=== PATIENT | female | born 1970 | race Caucasian/White ===

== ENCOUNTER 2016-08-02 10:31 | Emergency (ER) | payer MEDICARE, MEDICAID ==
[2016-08-02] MEDS ORDERED: Sodium Chloride 0.9% 10 ML Syringe FLUSH PRN (11:34)
[2016-08-02] MEDS ORDERED: Ondansetron 4 MG/2 ML SDV IVPUSH ONE ×2 (11:35→13:38)
[2016-08-02] MEDS ORDERED: HYDROmorphone 2 MG/ML SDV IVPUSH ONE ×2 (11:36→13:38)
--- NOTE | 2016-08-02 11:38 | EDM.PDOC ---
ED HPI GI/ABDOMINAL - General Chief Complaint: Abdominal Pain Stated Complaint: abdominal pain Time Seen by Provider: 08/02/16 11:15 Source: Reports: Patient, Old records History Limitations: Reports: No limitations - History of Present Illness INITIAL COMMENTS - FREE TEXT/NARRATIVE: Hallie reports sxs of headache, nausea, vomiting, and diarrhea over the past 4 days. There is some malaise, without fever, sweats, back pain or voiding sxs. There is some vague midabdominal pain, without cramping. She has had approximately 8 loose stools this am. Of interest in a recent hospitalization for GE on March 03, 2016, infectious work up negative. She has a PMH of MS, and is currently on Aubagio x 7 mos for management. She has not tried any meds for sxs relief. - Related Data Allergies/ADRs: Allergies Allergy/AdvReac Type Severity Reaction Status Date / Time Penicillins Allergy Unknown Bronchospas Verified 08/02/16 10:32 ms Sulfa (Sulfonamide Allergy Unknown Bronchospas Verified 08/02/16 10:32 Antibiotics) ms Home Meds: Home Meds Estrogens, Conjugated [Premarin] 1.25 mg PO DAILY 04/30/13 [History] traZODone 100 mg PO BEDTIME 04/30/13 [History] DULoxetine [Cymbalta] 60 mg PO DAILY 03/03/16 [History] Hydrochlorothiazide/Valsartan [Diovan HCTZ 80-12.5 MG] 1 tab PO DAILY 03/03/16 [ History] Pregabalin [Lyrica] 100 mg PO BID@08,18 03/03/16 [History] Teriflunomide [Aubagio] 14 mg PO DAILY 03/03/16 [History] cycloSPORINE [Restasis] 1 drop EYEBOTH DAILY PRN 03/03/16 [History] Gabapentin [Neurontin] 900 mg PO TID 08/02/16 [History] Ondansetron [Zofran ODT] 4 mg PO Q6H PRN #12 tab.dis 08/02/16 [Rx] Past Medical History - Past Health History Medical/Surgical History: Denies Medical/Surgical History HEENT History: Reports: Impaired vision Cardiovascular History: Reports: High cholesterol Gastrointestinal History: Reports: GERD Genitourinary History: Reports: Urinary incontinence, UTI, recurrent 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 CATARACTS. MANY EYE SURGERIES IN PAST 11 PLUS. GI Surgical History: Reports: Colonoscopy, EGD Female Surgical History: Reports: Breast reduction, section, Hysterectomy Social & Family History - Tobacco Use Smoking Status *Q: Former Smoker Used Tobacco, but Quit: Yes Month Tobacco Last Used: 0 Second Hand Smoke Exposure: Yes - Caffeine Use Caffeine Use: Reports: Coffee, Soda Caffeine Use Comment: 2 TO 4 CUPS COFFEE AND 3 CAN DIET COKE - Alcohol Use Days Per Week of Alcohol Use: 0 - Recreational Drug Use Recreational Drug Use: Yes Drug Use in Last 12 Months: Yes Recreational Drug Type: Reports: Marijuana/Hashish Recreational Drug Use Frequency: Daily - Living Situation & Occupation Living situation: Reports: Occupation: disabled ED ROS GENERAL - Review of Systems Review Of Systems: See Below Constitutional: Reports: chills, malaise, weakness, decreased appetite, weight loss HEENT: Reports: Other (chronic vision impairment) Respiratory: Reports: No Symptoms Cardiovascular: Reports: No symptoms Endocrine: Reports: no symptoms GI/Abdominal: Reports: Abdominal pain, Diarrhea, Decreased appetite, Nausea, Vomiting Musculoskeletal: Reports: no symptoms Skin: Reports: no symptoms Neurological: Reports: Headache (frontal headache with current illness), Difficulty Walking (impairment on R side from MS) Psychiatric: Reports: Anxiety, Depression, Mood lability Hematologic/Lymphatic: Reports: no symptoms Immunologic: Reports: other (on immunosuppressive for MS) ED EXAM, GI/ABD - Physical Exam Exam: See Below Exam Limited By: No limitations General Appearance: alert, WD/WN, no apparent distress, anxious Eyes: bilateral: EOMI Ears: normal external exam, normal canal, hearing grossly normal, normal TMs Nose: normal inspection, normal mucosa Throat/Mouth: Normal inspection, Normal lips, Normal teeth, Normal gums, Normal oropharynx, Normal voice, No airway compromise Head: atraumatic, normocephalic Neck: normal inspection, supple, non-tender, full range of motion Respiratory/Chest: no respiratory distress, lungs clear, normal breath sounds, no accessory muscle use, chest non-tender Cardiovascular: normal peripheral pulses, regular rate, rhythm, no murmur GI/Abdominal: soft, no organomegaly, no distention, no mass, hypoactive bowel sounds, tenderness (mild mid abdomen) (Female) Exam: Deferred Rectal (Female) Exam: Deferred Back Exam: normal inspection Extremities: normal inspection, normal range of motion, non-tender, other ( weakness RLE) Neurological: alert, oriented, normal cognition Psychiatric: normal affect, anxious Skin Exam: Warm, Dry, Intact, Normal color, No rash Lymphatic: no adenopathy Course - Vital Signs Text/Narrative:: Following assessment in the [facility] ED, an IV was started in the LUE, and I administered 2L of NS over the next 2 hrs pending lab results. I also administered Zofran 4 mg IV and Dilaudid 2 mg IV for sxs relief. Nausea subsided , and patient was given chips and sips of clear liquids. Headache sxs also improved with analgesics. The CBC noted Hgb 13.6 gm, WBC 10,500, plts normal; CMP noted mild elevations of AST and ALT, UA normal, all other values normal for age. Last Recorded V/S: Last Vital Signs Temp 36.3 C 08/02/16 10:38 Pulse 96 08/02/16 10:38 Resp 20 08/02/16 10:38 BP 171/83 H 08/02/16 10:38 Pulse Ox 97 08/02/16 10:38 - Orders/Labs/Meds Orders: Active Orders 24 hr Category Date Time Status Urinary Catheter Insertion [Insert Urinary Catheter] [ Care 08/02/16 14:30 Ordered OM.PC] Q24H CULTURE BLOOD [BC] Urgent Lab 08/02/16 11:50 Received CULTURE BLOOD [BC] Urgent Lab 08/02/16 11:55 Received CULTURE URINE [RM] Stat Lab 08/02/16 14:38 Received CULTURE-STOOL [MREF] Stat Lab 08/02/16 11:34 Uncollected HELICOBACTER PYLORI AG, STOOL [REF] Stat Lab 08/02/16 Ordered Hemoccult [OCCULT BLOOD DIAGNOSTIC] [OP] Stat Lab 08/02/16 11:37 Uncollected LACTOFERRIN, FECAL BY CORNELL [REF] Stat Lab 08/02/16 Ordered LIPASE [REF] Routine Lab 08/02/16 11:50 Received Sodium Chloride 0.9% [Normal Saline] 2,000 ml Med 08/02/16 11:45 Active IV ASDIRECTED Sodium Chloride 0.9% [Saline Flush] Med 08/02/16 11:34 Active 10 ml FLUSH ASDIRECTED PRN Blood Culture x2 Reflex Set [OM.PC] Urgent Oth 08/02/16 11:34 Ordered Peripheral IV Insertion Adult [OM.PC] Routine Oth 08/02/16 11:34 Ordered Medication Orders Sodium Chloride (Normal Saline) 2,000 mls @ 999 mls/hr IV ASDIRECTED GUNNAR Last Admin: 08/02/16 12:40 Dose: 999 mls/hr Infusion: 08/02/16 12:40 Dose: 999 mls/hr Admin: 08/02/16 11:44 Dose: 999 mls/hr Sodium Chloride (Saline Flush) 10 ml FLUSH ASDIRECTED PRN PRN Reason: Keep Vein Open Labs: Laboratory Tests 08/02/16 08/02/16 08/02/16 Range/Units 11:50 11:50 14:38 WBC 10.5 (4.5-12.0) X10-3/uL RBC 4.45 (3.23-5.20) x10(6)uL Hgb 13.6 (11.5-15.5) g/dL Hct 40.0 (30.0-51.3) % MCV 89.9 (80-96) fL MCH 30.5 (27.7-33.6) pg MCHC 33.9 (32.2-35.4) g/dL RDW 13.3 (11.5-15.5) % Plt Count 287 (125-369) X10(3)uL MPV 8.4 (7.4-10.4) fL Add Manual Diff Yes Neutrophils % (Manual) 79 (46-82) % Lymphocytes % (Manual) 18 (13-37) % Monocytes % (Manual) 3 L (4-12) % Sodium 135 (135-145) mmol/L Potassium 3.5 (3.5-5.3) mmol/L Chloride 100 D (100-110) mmol/L Carbon Dioxide 23 (23-29) mmol/L BUN 9 (5-20) mg/dL Creatinine 0.6 (0.6-1.3) mg/dL Est Cr Clr Drug Dosing 91.68 mL/min Estimated GFR (MDRD) > 60 (>60) BUN/Creatinine Ratio 15.0 (9-20) Glucose 116 (80-116) mg/dL Calcium 9.4 (8.6-10.2) mg/dL Magnesium 1.8 (1.8-2.5) mg/dL Total Bilirubin 0.5 (0.1-1.3) mg/dL AST 32 H D (5-27) IU/L ALT 27 H D (14-26) IU/L Alkaline Phosphatase 84 (56-112) IU/L Total Protein 7.8 (6.0-8.0) g/dL Albumin 4.0 (3.5-5.2) g/dL Globulin 3.8 g/dL Albumin/Globulin Ratio 1.1 Amylase 41 (28-100) U/L Urine Color Yellow (YELLOW) Urine Appearance Slightly cloudy (CLEAR) Urine pH 7.0 H (5.0-6.5) Ur Specific [place] 1.010 (1.010-1.025) Urine Protein Negative (NEGATIVE) mg/dL Urine Glucose (UA) Normal (NEGATIVE) mg/dL Urine Ketones 15 H (NEGATIVE) mg/dL Urine Occult Blood Moderate H (NEGATIVE) Urine Nitrite Negative (NEGATIVE) Urine Bilirubin Negative (NEGATIVE) Urine Urobilinogen Normal (NEGATIVE) mg/dL Ur Leukocyte Esterase Negative (NEGATIVE) Urine RBC 5-10 (0) Urine WBC 5-10 (0) Ur Squamous Epith Cells Many H (NS,R,O) Amorphous Sediment Moderate Urine Bacteria Moderate H (NS) Meds: Medications Generic Name Dose Route Start Last Admin Trade Name Freq PRN Reason Stop Dose Admin Sodium Chloride 2,000 mls @ 999 mls/hr 08/02/16 11:45 08/02/16 12:40 Normal Saline IV 999 mls/hr ASDIRECTED GUNNAR Administration Sodium Chloride 10 ml 08/02/16 11:34 Saline Flush FLUSH ASDIRECTED PRN Keep Vein Open Discontinued Medications Generic Name Dose Route Start Last Admin Trade Name Freq PRN Reason Stop Dose Admin Hydromorphone HCl 2 mg 08/02/16 11:36 08/02/16 11:46 Dilaudid IVPUSH 08/02/16 11:37 2 mg ONETIME ONE Administration Hydromorphone HCl 2 mg 08/02/16 13:38 08/02/16 13:55 Dilaudid IVPUSH 08/02/16 13:39 2 mg ONETIME ONE Administration Ondansetron HCl 4 mg 08/02/16 11:35 08/02/16 11:46 Zofran IVPUSH 08/02/16 11:36 4 mg ONETIME ONE Administration Ondansetron HCl 4 mg 08/02/16 13:38 08/02/16 13:55 Zofran IVPUSH 08/02/16 13:39 4 mg ONETIME ONE Administration Departure - Departure Time of Disposition: 15:35 Disposition: Home, Self-Care 01 Condition: fair Clinical Impression: Tension headache, Gastroenteritis Forms: ED Department Discharge - Problem List & Annotations (1) Tension headache SNOMED Code(s): 389767257 Code(s): G44.209 - TENSION-TYPE HEADACHE, UNSPECIFIED, NOT INTRACTABLE Status: Acute Current Visit: Yes Annotation/Comment:: Tension headache improved, and may be managed with Tylenol or NSAIDs. (2) Gastroenteritis SNOMED Code(s): 22351534 Code(s): K52.9 - NONINFECTIVE GASTROENTERITIS AND COLITIS, UNSPECIFIED Status: Acute Current Visit: Yes Annotation/Comment:: Diarrhea can be managed with Imodium tabs prn. The nausea can be managed with a prescription of Zofran ODT 4 mg q 6 hr prn, and follow up with PCP. - Problem List Review Problem List Initiated/Reviewed/Updated: Yes - My Orders Last 24 Hours: My Active Orders 08/02/16 HELICOBACTER PYLORI AG, STOOL [REF] Stat LACTOFERRIN, FECAL BY CORNELL [REF] Stat 08/02/16 11:34 CULTURE-STOOL [MREF] Stat Sodium Chloride 0.9% [Saline Flush] 10 ml FLUSH ASDIRECTED PRN Blood Culture x2 Reflex Set [OM.PC] Urgent Peripheral IV Insertion Adult [OM.PC] Routine 08/02/16 11:37 Hemoccult [OCCULT BLOOD DIAGNOSTIC] [OP] Stat 08/02/16 11:45 Sodium Chloride 0.9% [Normal Saline] 2,000 ml IV ASDIRECTED 08/02/16 11:50 CULTURE BLOOD [BC] Urgent LIPASE [REF] Routine 08/02/16 11:55 CULTURE BLOOD [BC] Urgent 08/02/16 14:30 Urinary Catheter Insertion [Insert Urinary Catheter] [OM.PC] Q24H 08/02/16 14:38 CULTURE URINE [RM] Stat - Assessment/Plan Last 24 Hours: My Active Orders 08/02/16 HELICOBACTER PYLORI AG, STOOL [REF] Stat LACTOFERRIN, FECAL BY CORNELL [REF] Stat 08/02/16 11:34 CULTURE-STOOL [MREF] Stat Sodium Chloride 0.9% [Saline Flush] 10 ml FLUSH ASDIRECTED PRN Blood Culture x2 Reflex Set [OM.PC] Urgent Peripheral IV Insertion Adult [OM.PC] Routine 08/02/16 11:37 Hemoccult [OCCULT BLOOD DIAGNOSTIC] [OP] Stat 08/02/16 11:45 Sodium Chloride 0.9% [Normal Saline] 2,000 ml IV ASDIRECTED 08/02/16 11:50 CULTURE BLOOD [BC] Urgent LIPASE [REF] Routine 08/02/16 11:55 CULTURE BLOOD [BC] Urgent 08/02/16 14:30 Urinary Catheter Insertion [Insert Urinary Catheter] [OM.PC] Q24H 08/02/16 14:38 CULTURE URINE [RM] Stat Plan: Follow up with PCP if needed.
[2016-08-02] MEDS: Sodium Chloride 0.9% 2,000 ML IV SCH ×2 (11:44→12:40)
[2016-08-02 15:54] VITALS: BP 139/85
== END 2016-08-02 15:57 | disposition home or self-care (01) ==
LOC: FB.ED 10:31
DX: K52.9 Noninfective gastroenteritis and colitis, unspecified (principal); G44.209 Tension-type headache, unspecified, not intractable; E78.00 Pure hypercholesterolemia, unspecified; K21.9 Gastro-esophageal reflux disease without esophagitis; Z87.440 Personal history of urinary (tract) infections; F41.9 Anxiety disorder, unspecified; F32.9 Major depressive disorder, single episode, unspecified; Z79.899 Other long term (current) drug therapy; Z98.41 Cataract extraction status, right eye; Z98.42 Cataract extraction status, left eye; Z90.710 Acquired absence of both cervix and uterus; Z87.891 Personal history of nicotine dependence; Z88.0 Allergy status to penicillin; Z88.2 Allergy status to sulfonamides
CPT/HCPCS: 36415; 51701; 80053; 81001; 82150; 83690; 83735; 85025; 87040; 87086; 96361; 96374; 96375; 96376; 99284; J1170; J2405; J7040

== ENCOUNTER 2016-12-03 18:15 | Emergency (ER) | payer MEDICARE, MEDICAID ==
[2016-12-03 18:34] VITALS: BP 129/86
[2016-12-03] MEDS ORDERED: Acetaminophen 325 MG Tab PO ONE (18:49)
--- NOTE | 2016-12-03 18:56 | EDM.PDOC ---
ED HPI GENERAL MEDICAL PROBLEM - General Chief Complaint: General Stated Complaint: LEG WEAKNESS Time Seen by Provider: 12/03/16 18:30 Source of Information: Reports: Patient, Old Records History Limitations: Reports: No Limitations - History of Present Illness INITIAL COMMENTS - FREE TEXT/NARRATIVE: Hallie comes to [facility] ED by EMS reporting that the [facility] in [place], [place] requires medical clearance. Her PCP is unavailable at this time. Her spouse reportedly cannot take care of her physical needs, and he is unavailable at this time. Hallie has a PMH of MS, ambulates with a walker and did so this am, although now she is reported chronic pain and weakness in legs and feet do not permit ambulation. There is some frontal headache which is chronic. There is no fever, chills, sweats, cough, chest pain or SOB. Her med list is reviewed. Headache Pain Score (Numeric/FACES): 8 - Related Data Allergies Allergy/AdvReac Type Severity Reaction Status Date / Time Penicillins Allergy Unknown Bronchospas Verified 12/03/16 18:31 ms Sulfa (Sulfonamide Allergy Unknown Bronchospas Verified 12/03/16 18:31 Antibiotics) ms Home Meds: Home Meds Estrogens, Conjugated [Premarin] 1.25 mg PO DAILY 04/30/13 [History] traZODone 100 mg PO BEDTIME 04/30/13 [History] DULoxetine [Cymbalta] 60 mg PO DAILY 03/03/16 [History] Hydrochlorothiazide/Valsartan [Diovan HCTZ 80-12.5 MG] 1 tab PO DAILY 03/03/16 [ History] Teriflunomide [Aubagio] 14 mg PO DAILY 03/03/16 [History] Gabapentin [Neurontin] 300 mg PO TID 12/03/16 [History] Valsartan/Hydrochlorothiazide [Valsartan-Hctz 80-12.5 mg Tab] 1 each PO DAILY [History] Past Medical History - Past Health History Medical/Surgical History: Denies Medical/Surgical History HEENT History: Reports: Impaired Vision Cardiovascular History: Reports: High Cholesterol Gastrointestinal History: Reports: GERD Genitourinary History: Reports: Urinary Incontinence, UTI, Recurrent 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, Musculoskeletal History: Reports: Other (See Below) Other Musculoskeletal History: PT HAS MS AND DRAGS RIGHT LEG NOW Neurological History: Reports: MS Psychiatric History: Reports: Anxiety, Depression, Mood Swings - Infectious Disease History Infectious Disease History: Reports: Chicken Pox, Measles, Mumps - Past Surgical History HEENT Surgical History: Reports: Cataract Surgery GI Surgical History: Reports: Colonoscopy, EGD Female Surgical History: Reports: Breast Reduction, Section, Hysterectomy Social & Family History - Tobacco Use Smoking Status *Q: Former Smoker Used Tobacco, but Quit: Yes Month Tobacco Last Used: quit 10 years ago Second Hand Smoke Exposure: Yes - Caffeine Use Caffeine Use: Reports: Coffee Caffeine Use Comment: 2 TO 4 CUPS COFFEE AND 3 CAN DIET COKE - Alcohol Use Days Per Week of Alcohol Use: 0 - Recreational Drug Use Recreational Drug Use: No Drug Use in Last 12 Months: Yes Recreational Drug Type: Reports: Marijuana/Hashish Recreational Drug Use Frequency: Daily - Living Situation & Occupation Living situation: Reports: Occupation: Disabled ED ROS GENERAL - Review of Systems Review Of Systems: See Below Constitutional: Reports: Weakness HEENT: Reports: No Symptoms Respiratory: Reports: No Symptoms Cardiovascular: Reports: No Symptoms Endocrine: Reports: No Symptoms GI/Abdominal: Reports: No Symptoms : Reports: No Symptoms Musculoskeletal: Reports: Leg Pain, Foot Pain, Muscle Pain, Other (weakness in LEs) Skin: Reports: No Symptoms Neurological: Reports: Headache, Numbness, Pre-Existing Deficit, Difficulty Walking, Weakness, Gait Disturbance Psychiatric: Reports: No Symptoms Hematologic/Lymphatic: Reports: No Symptoms Immunologic: Reports: No Symptoms ED EXAM, GENERAL - Physical Exam Exam: See Below Exam Limited By: Physical Impairment General Appearance: Alert, WD/WN, No Apparent Distress, Anxious Eye Exam: Bilateral Eye: EOMI, Normal Inspection, PERRL Ears: Normal External Exam, Normal Canal Nose: Normal Inspection Throat/Mouth: Normal Inspection, Normal Lips, Normal Teeth, Normal Oropharynx, Normal Voice Head: Normocephalic Neck: Normal Inspection, Supple, Non-Tender, Full Range of Motion Respiratory/Chest: Lungs Clear, Normal Breath Sounds, No Accessory Muscle Use, Chest Non-Tender Cardiovascular: Regular Rate, Rhythm GI/Abdominal: Normal Bowel Sounds, Soft, Non-Tender, No Organomegaly, No Distention, No Mass Rectal (Female) Exam: Deferred Back Exam: Normal Inspection Extremities: Other (both legs note mild dependent edema, no tracey swelling or deformity; she can move her feet, and does move legs with distraction) Neurological: Alert, CN II-XII Intact, Abnormal Gait, Sensory/Motor Deficit Psychiatric: Normal Affect, Anxious Skin Exam: Warm, Dry, Intact Lymphatic: No Adenopathy Course - Vital Signs Text/Narrative:: Following assession at the [facility] ED, screening labs noted: CBC 13.7 gm, WBC 13, 600, plts normal; Na 135, K 2.7; UA + nitrites, UC set up; DS: cannabis positive She is not cleared for SNF. Last Recorded V/S: Last Vital Signs Temp 36.9 C 12/03/16 18:32 Pulse 104 H 12/03/16 18:32 Resp 18 12/03/16 18:32 BP 129/86 12/03/16 18:32 Pulse Ox 94 L 12/03/16 18:32 - Orders/Labs/Meds Orders: Active Orders 24 hr Category Date Time Status Potassium Chloride [Klor-Con M20] Med 12/03/16 20:45 Ordered 20 meq PO TID Medication Orders Potassium Chloride (Klor-Con M20) 20 meq PO TID GUNNAR Labs: Laboratory Tests 12/03/16 12/03/16 12/03/16 Range/Units 19:10 19:10 19:10 WBC 13.7 H (4.5-12.0) X10-3/uL RBC 4.32 (3.23-5.20) x10(6)uL Hgb 13.6 (11.5-15.5) g/dL Hct 39.0 (30.0-51.3) % MCV 90.2 (80-96) fL MCH 31.6 (27.7-33.6) pg MCHC 35.0 (32.2-35.4) g/dL RDW 12.3 (11.5-15.5) % Plt Count 319 (125-369) X10(3)uL MPV 8.3 (7.4-10.4) fL Neut % (Auto) 70.8 (46-82) % Lymph % (Auto) 22.4 (13-37) % [place] % (Auto) 4.4 (4-12) % Eos % (Auto) 1 (1.0-5.0) % Baso % (Auto) 2 (0-2) % Neut # (Auto) 9.7 H (1.6-8.3) # Lymph # (Auto) 3.1 (0.6-5.0) # [place] # (Auto) 0.6 (0.0-1.3) # Eos # (Auto) 0.1 (0.0-0.8) # Baso # (Auto) 0.2 (0.0-0.2) # Sodium 135 (135-145) mmol/L Potassium 2.7 L* (3.5-5.3) mmol/L Chloride 94 L D (100-110) mmol/L Carbon Dioxide 29 (23-29) mmol/L BUN 15 (5-20) mg/dL Creatinine 0.7 (0.6-1.3) mg/dL Est Cr Clr Drug Dosing 78.58 mL/min Estimated GFR (MDRD) > 60 (>60) BUN/Creatinine Ratio 21.4 H (9-20) Glucose 114 (80-116) mg/dL Calcium 9.1 (8.6-10.2) mg/dL Total Bilirubin 0.3 (0.1-1.3) mg/dL AST 21 D (5-27) IU/L ALT 15 D (14-26) IU/L Alkaline Phosphatase 81 (56-112) IU/L Total Protein 7.3 (6.0-8.0) g/dL Albumin 3.8 (3.5-5.2) g/dL Globulin 3.5 g/dL Albumin/Globulin Ratio 1.1 Urine Color (YELLOW) Urine Appearance (CLEAR) Urine pH (5.0-6.5) Ur Specific [place] (1.010-1.025) Urine Protein (NEGATIVE) mg/dL Urine Glucose (UA) (NEGATIVE) mg/dL Urine Ketones (NEGATIVE) mg/dL Urine Occult Blood (NEGATIVE) Urine Nitrite (NEGATIVE) Urine Bilirubin (NEGATIVE) Urine Urobilinogen (NEGATIVE) mg/dL Ur Leukocyte Esterase (NEGATIVE) Urine RBC (0) Urine WBC (0) Ur Squamous Epith Cells (NS,R,O) Urine Bacteria (NS) Urine Opiates Screen (NEGATIVE) Ur Oxycodone Screen (NEGATIVE) Ur Propoxyphene Screen (NEGATIVE) Ur Barbituates Screen (NEGATIVE) Ur Tricyclics Screen (NEGATIVE) Ur Phencyclidine Scrn (NEGATIVE) Ur Amphetamine Screen (NEGATIVE) Urine MDMA Screen (NEGATIVE) U Benzodiazepines Scrn (NEGATIVE) U Cocaine Metab Screen (NEGATIVE) U Marijuana (THC) Screen (NEGATIVE) Ethyl Alcohol < 0.01 (<0.01) % 12/03/16 12/03/16 Range/Units 19:54 19:54 WBC (4.5-12.0) X10-3/uL RBC (3.23-5.20) x10(6)uL Hgb (11.5-15.5) g/dL Hct (30.0-51.3) % MCV (80-96) fL MCH (27.7-33.6) pg MCHC (32.2-35.4) g/dL RDW (11.5-15.5) % Plt Count (125-369) X10(3)uL MPV (7.4-10.4) fL Neut % (Auto) (46-82) % Lymph % (Auto) (13-37) % [place] % (Auto) (4-12) % Eos % (Auto) (1.0-5.0) % Baso % (Auto) (0-2) % Neut # (Auto) (1.6-8.3) # Lymph # (Auto) (0.6-5.0) # [place] # (Auto) (0.0-1.3) # Eos # (Auto) (0.0-0.8) # Baso # (Auto) (0.0-0.2) # Sodium (135-145) mmol/L Potassium (3.5-5.3) mmol/L Chloride (100-110) mmol/L Carbon Dioxide (23-29) mmol/L BUN (5-20) mg/dL Creatinine (0.6-1.3) mg/dL Est Cr Clr Drug Dosing mL/min Estimated GFR (MDRD) (>60) BUN/Creatinine Ratio (9-20) Glucose (80-116) mg/dL Calcium (8.6-10.2) mg/dL Total Bilirubin (0.1-1.3) mg/dL AST (5-27) IU/L ALT (14-26) IU/L Alkaline Phosphatase (56-112) IU/L Total Protein (6.0-8.0) g/dL Albumin (3.5-5.2) g/dL Globulin g/dL Albumin/Globulin Ratio Urine Color Yellow (YELLOW) Urine Appearance Slightly cloudy (CLEAR) Urine pH 5.0 (5.0-6.5) Ur Specific [place] 1.030 H (1.010-1.025) Urine Protein Negative (NEGATIVE) mg/dL Urine Glucose (UA) Normal (NEGATIVE) mg/dL Urine Ketones Negative (NEGATIVE) mg/dL Urine Occult Blood Moderate H (NEGATIVE) Urine Nitrite Positive H (NEGATIVE) Urine Bilirubin Negative (NEGATIVE) Urine Urobilinogen Normal (NEGATIVE) mg/dL Ur Leukocyte Esterase Small H (NEGATIVE) Urine RBC 0-5 (0) Urine WBC 5-10 (0) Ur Squamous Epith Cells Rare (NS,R,O) Urine Bacteria Many H (NS) Urine Opiates Screen Negative (NEGATIVE) Ur Oxycodone Screen Negative (NEGATIVE) Ur Propoxyphene Screen Negative (NEGATIVE) Ur Barbituates Screen Negative (NEGATIVE) Ur Tricyclics Screen Negative (NEGATIVE) Ur Phencyclidine Scrn Negative (NEGATIVE) Ur Amphetamine Screen Negative (NEGATIVE) Urine MDMA Screen Negative (NEGATIVE) U Benzodiazepines Scrn Negative (NEGATIVE) U Cocaine Metab Screen Negative (NEGATIVE) U Marijuana (THC) Screen Positive H (NEGATIVE) Ethyl Alcohol (<0.01) % Meds: Medications Generic Name Dose Route Start Last Admin Trade Name Freq PRN Reason Stop Dose Admin Potassium Chloride 20 meq 12/03/16 20:45 Klor-Con M20 PO TID GUNNAR Discontinued Medications Generic Name Dose Route Start Last Admin Trade Name Freq PRN Reason Stop Dose Admin Acetaminophen 650 mg 12/03/16 18:49 12/03/16 19:10 Tylenol PO 12/03/16 18:50 650 mg NOW ONE Administration Departure - Departure Time of Disposition: 20:56 Disposition: Home, Self-Care 01 Condition: Fair Clinical Impression: Hypokalemia, Cannabis abuse, Multiple sclerosis - Discharge Information Forms: ED Department Discharge - Problem List & Annotations (1) Hypokalemia SNOMED Code(s): 45112165 Code(s): E87.6 - HYPOKALEMIA Status: Acute Current Visit: No Annotation /Comment:: Her K 2.7 meq/l. I dispensed KCl 20 meq tabs tid x 4 days, and then follow up with PCP for levels. In the meantime, she is not medically cleared. (2) Multiple sclerosis SNOMED Code(s): 36375416 Code(s): G35 - MULTIPLE SCLEROSIS Status: Chronic Current Visit: Yes Annotation/Comment:: Follow up with Neurology. (3) Cannabis abuse SNOMED Code(s): 81509640 Code(s): F12.10 - CANNABIS ABUSE, UNCOMPLICATED Status: Acute Current Visit: Yes Annotation/Comment:: Hallie takes recreational cannabis for physical sxs. She was advised to consult with Neurology to obtain medical cannabis if this is deemed indicated. - Problem List Review Problem List Initiated/Reviewed/Updated: Yes - My Orders Last 24 Hours: My Active Orders 12/03/16 20:45 Potassium Chloride [Klor-Con M20] 20 meq PO TID - Assessment/Plan Last 24 Hours: My Active Orders 12/03/16 20:45 Potassium Chloride [Klor-Con M20] 20 meq PO TID Plan: Follow up with PCP.
[2016-12-03] MEDS ORDERED: Potassium Chloride 20 MEQ Tab.ER PO SCH (20:45)
[2016-12-03] MEDS ORDERED: Potassium Chloride 10 MEQ Tab.ER PO ONE (20:54)
== END 2016-12-03 21:20 | disposition home or self-care (01) ==
LOC: FB.ED 18:15
DX: E87.6 Hypokalemia (principal); F12.10 Cannabis abuse, uncomplicated; G35 Multiple sclerosis; F41.9 Anxiety disorder, unspecified; E78.00 Pure hypercholesterolemia, unspecified; F32.9 Major depressive disorder, single episode, unspecified; K21.9 Gastro-esophageal reflux disease without esophagitis; Z88.0 Allergy status to penicillin; Z88.2 Allergy status to sulfonamides; Z79.899 Other long term (current) drug therapy; Z87.440 Personal history of urinary (tract) infections; Z90.710 Acquired absence of both cervix and uterus; Z87.891 Personal history of nicotine dependence
CPT/HCPCS: 36415; 80053; 80305; 81001; 85025; 99283; A9270; G0480

== ENCOUNTER 2017-03-20 12:46 | Emergency (ER) | payer MEDICARE, MEDICAID ==
[2017-03-20] MEDS ORDERED: Sodium Chloride 0.9% 1,000 ML IV ONE ×2 (13:21→14:22)
[2017-03-20] MEDS ORDERED: Ondansetron 4 MG/2 ML SDV IVPUSH ONE (13:31)
[2017-03-20] MEDS ORDERED: Ketorolac 30 MG/ML SDV IVPUSH ONE (13:37)
[2017-03-20] MEDS ORDERED: Levofloxacin/Dextrose 5%-Water 500 MG in Premix Bag 1 BAG IV ONE (15:06)
== END 2017-03-20 16:38 | disposition home or self-care (01) ==
LOC: FB.ED 12:46
DX: K52.9 Noninfective gastroenteritis and colitis, unspecified (principal); N39.0 Urinary tract infection, site not specified; Z88.0 Allergy status to penicillin; Z88.2 Allergy status to sulfonamides; Z79.899 Other long term (current) drug therapy
CPT/HCPCS: 36415; 80048; 81001; 85025; 87086; 87088; 87186; 96361; 96365; 96375; 99283; J1885; J1956; J2405; J7040

== ENCOUNTER 2017-03-22 11:04 | Inpatient (IN) | payer MEDICARE, MEDICAID ==
[2017-03-22] MEDS ORDERED: Iopamidol 755 Mg/ML 75 ML Bottle IV ONE (12:36)
[2017-03-22] MEDS ORDERED: Potassium Chloride 10% 20 MEQ/15 ML Soln 15 ML UD Cup PO ONE (12:39)
[2017-03-22] MEDS ORDERED: NS + KCl 20mEq/L 1,000 ML IV SCH (12:45)
[2017-03-22] MEDS: Sodium Chloride 0.9% 1,000 ML IV SCH (14:00)
[2017-03-22] MEDS ORDERED: Acetaminophen 325 MG Tab PO PRN (14:03)
[2017-03-22] MEDS ORDERED: Ondansetron 4 MG Tab.DIS PO PRN (14:03)
[2017-03-22] MEDS ORDERED: Ibuprofen 600 MG Tab PO PRN (14:03)
[2017-03-22] MEDS ORDERED: Ondansetron 4 MG/2 ML SDV IV PRN (14:03)
[2017-03-22] MEDS ORDERED: Zolpidem 5 MG Tab PO PRN (14:03)
[2017-03-22] MEDS ORDERED: Sodium Chloride 0.9% 1,000 ML IV SCH (14:15)
--- NOTE | 2017-03-22 14:57 | CR ---
INDICATION: Weak, sick, MS 5 years. CHEST: A single AP upright view of the chest was obtained 03/22/2017 and compared with 09/26/2009, revealing the heart to remain normal in size and shape. There may be a mild dextroconvex scoliosis of the thoracic spine. A definite active infiltrate or effusion was not identified. IMPRESSION: Stable chest, no acute process. MTDD
--- NOTE | 2017-03-22 15:03 | CT ---
INDICATION: Elevated D-dimer, question PE. The patient has MS. COMPUTERIZED TOMOGRAPHY ANGIOGRAPHY OF THE CHEST FOR PULMONARY ANGIOGRAPHY: Spiral 1.25-mm images of the chest were obtained axially with 75 mL Isovue-370 at 3 mL per second, with sagittal and coronal reconstructions, 03/22/2017. No comparisons were available. Total Exam DLP = 705.02 mGy-cm. Opacification of the pulmonary arteries was not ideal, but was felt to be adequate. No evidence of pulmonary emboli was identified. There is some linear density in the lingula, most likely representing minimal pulmonary fibrosis. An active infiltrate or effusion or nodular mass was not identified. The heart did not appear to be enlarged. No mediastinal masses were identified. IMPRESSION: Normal CT chest, except for some very minimal fibrosis. No evidence of PE. Report was given by phone to Dr. Mcfadden at 1330 hours, 03/22/2017. [facility]
--- NOTE | 2017-03-22 15:21 | CT ---
INDICATION: Right abdominal pain, vomiting for 5 days. The patient has MS. CT ABDOMEN AND PELVIS WITH CONTRAST: Spiral 1.25-mm axial sections were obtained through the abdomen and pelvis with sagittal and coronal reconstructions, with contrast as noted in the above chest CT. Total Exam DLP = 1258.21 mGy-cm. The liver had a normal appearance. There is absence of the gallbladder, compatible with history of its removal - clips are noted at the cystic duct. The common bile duct was normal in caliber. The pancreas appeared normal. The spleen and adrenal glands appeared normal. The kidneys showed no evidence of solid mass lesions with several tiny low- density lesions, likely cystic in nature bilaterally, more prominent on the right than left, being slightly more prominent in size. No evidence of pyelonephritis could be identified. There is a slight tilt of the spine to the right. The urinary bladder had a normal appearance. Evidence of hysterectomy is noted. The appendix is not visualized, raising question of possibly appendectomy - correlate clinically. No evidence of bowel obstruction was identified. No evidence of free air was seen. No organomegaly, additional mass lesions, or free fluid collections were identified in the abdomen or pelvis. Minimal aortic calcifications are noted. Calcifications are also noted at the origin of the left renal artery, very minimally at the origin of the right renal artery, and at the splenic artery minimally also. Retroperitoneal lymphadenopathy is minimal and nonspecific. No retroperitoneal masses were suggested. Mild prominence of the wall thickness of the gastric antrum is of questionable significance, but makes it difficult to exclude a mild degree of antritis - early peptic ulcer disease - correlate clinically. There is suggestion of some thickening of the wall of the ascending colon extending into the proximal transverse colon area. The possibility of colitis would be a consideration - findings should be correlated clinically. If symptoms are referable to the colon, additional examination may be warranted such as colonoscopy or barium enema. IMPRESSION: 1. Minimal multicystic disease in the kidneys. 2. Minimal ASD. 3. Post cholecystectomy. 4. Post hysterectomy. 5. Probable appendectomy. 6. No definite acute intraabdominal abnormality. 7. Question the possibility of thickening of the lining of the gastric antrum. Early PUD could be present - correlate clinically. 8. Cannot exclude colitis in the ascending and proximal transverse area - correlate clinically. CT PELVIS: Examination of the pelvis was obtained by CT as noted above, and revealed absence of the uterus and appendix, suggesting postsurgical change. Correlate clinically. The urinary bladder was unremarkable. No hernia was seen. No free fluid collections, mass lesions, or organomegaly were seen in the pelvis. No evidence of bowel obstruction or free air was seen. Report was called to Dr. Mcfadden at 1348 hours, 03/22/2017. [facility]
[2017-03-22] MEDS ORDERED: Enoxaparin 40 MG/0.4 ML Syringe SUBCUT SCH (16:00)
[2017-03-22] MEDS ORDERED: Sodium Chloride 0.9% 10 ML Syringe FLUSH PRN (18:30)
[2017-03-22] MEDS ORDERED: Potassium Chloride 10% 20 MEQ/15 ML Soln 15 ML UD Cup ONE (18:44)
[2017-03-22] MEDS: HYDROmorphone 2 MG/ML SDV IVPUSH PRN (19:43)
[2017-03-22] MEDS ORDERED: Gabapentin 300 MG Cap PO SCH (21:00)
[2017-03-22] MEDS ORDERED: traZODone 100 MG Tab PO SCH (21:00)
[2017-03-22] MEDS ORDERED: Levofloxacin/Dextrose 5%-Water 500 MG in Premix Bag 1 BAG IV ONE (21:32)
[2017-03-23] MEDS: Sodium Chloride 0.9% 1,000 ML IV SCH (00:45)
[2017-03-23] MEDS ORDERED: diphenhydrAMINE 50 MG Cap PO ONE (00:51)
--- NOTE | 2017-03-23 07:50 | HP ---
ADMISSION DATE: 03/22/2017 REASON FOR VISIT: Complicated nausea, vomiting, and diarrhea. HISTORY OF PRESENT ILLNESS: Hallie Mendoza is a 47-year-old female, admitted with severe complicated diarrhea. She was seen at [facility] on this past Sunday with a complicated UTI. She came by ambulance. Discharged home on antibiotic therapy. Symptoms persisted with complicated nausea, severe diarrhea, progressive decline resulting in reevaluation and hospitalization. MEDICATIONS: 1. Recent change in medication from gabapentin to Lyrica that started, 150 mg b.i.d. 2. Cymbalta 60 mg plus 30 mg, 90 mg, tapered in divided doses. 3. Premarin 1.25 mg one daily. 4. Lopressor 25 mg one p.o. daily, heart rate control. 5. Trazodone 100 mg at bedtime, sleep enhancement. 6. Diovan/hydrochlorothiazide 80/25 one p.o. daily, blood pressure. 7. Melatonin. 8. Restasis. 9. Tylenol. ALLERGIES: Allergic to penicillin, ciprofloxacin, Percocet, and sulfa. PAST MEDICAL HISTORY: Significant for operative procedures to include multiple eye surgeries. Ongoing medical problems include progressive multiple sclerosis, hypertension, progressive MS related blindness, vertigo, and anxiety. Cholecystectomy, hysterectomy, and appendectomy present. SOCIAL HISTORY: Presently , though marriage is under some duress, former smoker, 2017. No alcohol consumption. No illicit drug use. FAMILY HISTORY: Negative for early heart disease, diabetes mellitus, or inheritable cancers. REVIEW OF SYSTEMS: GENERAL: Feeling very poorly. Weak, tired, fatigable. HEENT: Vision markedly impaired. Hearing markedly impaired. Oropharynx, some difficulty swallowing. CHEST: No cough, wheeze, or congestion. GI: Please see HPI. : Please see HPI. SKIN: No new lesions or eruptions. ENDOCRINE: No excessive thirst or urination. ALLERGIC: No chronic cough or disease. PHYSICAL EXAMINATION: VITAL SIGNS: Stable and documented. CONSTITUTIONAL: Appears quite ill. HEENT: Funduscopic benign. Conjunctivae clear. Bright tympanic membranes. Clear nasal discharge. Mouth and oropharynx, clear. CHEST: Clear in all lung toro. HEART: Regular without ectopy or murmur. ABDOMEN: Benign. Multiple surgical scars, well healed. Hyperactive bowel is distinctly tender, periumbilical. EXTREMITIES: Well perfused. SKIN: Without rash. LABORATORY STUDIES: White count 16,700, hemoglobin 12.9. Potassium 2.7. Inflammatory bowel changes throughout the colon. ASSESSMENT: 1. Complicated gastroenteritis. 2. Complicated urinary tract infection. PLAN: Medications, hospital treatment, adequate fluids, hydration, comfort measures, and well-being. Evaluation of urinary source, culture to follow, control of pain in intervention. /[id number] HEIDI/SHONA
[2017-03-23 08:20] VITALS: BP 154/97
--- NOTE | 2017-03-23 08:46 | PCM.PN ---
- General Info Date of Service: 03/23/17 Subjective Update: Patient complains of hip pain and requests Dilaudid. She states that the nausea has improved diarrhea has it no fever. She would like to go home. Functional Status: Reports: Tolerating Diet (liquid) - Review of Systems General: Reports: No Symptoms HEENT: Reports: No Symptoms Pulmonary: Reports: No Symptoms Cardiovascular: Reports: No Symptoms Gastrointestinal: Reports: No Symptoms Genitourinary: Reports: No Symptoms Musculoskeletal: Reports: No Symptoms, Joint Pain (Hip) - Patient Data Vitals - Most Recent: Last Vital Signs Temp 98.8 F 03/23/17 08:00 Pulse 85 03/23/17 08:00 Resp 18 03/23/17 08:00 BP 154/97 H 03/23/17 08:00 Pulse Ox 98 03/23/17 08:00 Weight - Most Recent: 74.435 kg I&O - Last 24 Hours: Intake & Output 03/22/17 03/23/17 03/23/17 22:59 06:59 14:59 Intake Total 1513 1040 233 Output Total 450 Balance 1513 590 233 Lab Results Last 24 Hours: Laboratory Results - last 24 hr 03/22/17 03/23/17 03/23/17 Range/Units 18:05 06:30 06:30 WBC 15.3 H (4.5-12.0) X10-3/uL RBC 3.68 (3.23-5.20) x10(6)uL Hgb 12.0 (11.5-15.5) g/dL Hct 33.5 (30.0-51.3) % MCV 91.1 (80-96) fL MCH 32.6 (27.7-33.6) pg MCHC 35.8 H (32.2-35.4) g/dL RDW 13.1 (11.5-15.5) % Plt Count 302 (125-369) X10(3)uL MPV 7.9 (7.4-10.4) fL Neut % (Auto) 79.1 (46-82) % Lymph % (Auto) 16.0 (13-37) % [place] % (Auto) 4.3 (4-12) % Eos % (Auto) 0 L (1.0-5.0) % Baso % (Auto) 0 (0-2) % Neut # (Auto) 12.0 H (1.6-8.3) # Lymph # (Auto) 2.5 (0.6-5.0) # [place] # (Auto) 0.7 (0.0-1.3) # Eos # (Auto) 0.1 (0.0-0.8) # Baso # (Auto) 0.0 (0.0-0.2) # ESR 37 H (0-20) mm/hr Sodium 141 (135-145) mmol/L Potassium 3.0 L (3.5-5.3) mmol/L Chloride 106 (100-110) mmol/L Carbon Dioxide 26 (21-32) mmol/L BUN 5 L (7-18) mg/dL Creatinine 0.6 (0.55-1.02) mg/dL Est Cr Clr Drug Dosing 94.85 mL/min Estimated GFR (MDRD) > 60 (>60) BUN/Creatinine Ratio 8.3 L (9-20) Glucose 116 (80-116) mg/dL Calcium 7.7 L (8.6-10.2) mg/dL Total Bilirubin 0.4 (0.1-1.3) mg/dL AST 19 (5-25) IU/L ALT 25 (12-36) U/L Alkaline Phosphatase 75 (56-112) IU/L Total Protein 7.0 (6.0-8.0) g/dL Albumin 3.3 L (3.5-5.2) g/dL Globulin 3.7 g/dL Albumin/Globulin Ratio 0.9 Urine Opiates Screen Negative (NEGATIVE) Ur Oxycodone Screen Negative (NEGATIVE) Ur Propoxyphene Screen Negative (NEGATIVE) Ur Barbituates Screen Negative (NEGATIVE) Ur Tricyclics Screen Negative (NEGATIVE) Ur Phencyclidine Scrn Negative (NEGATIVE) Ur Amphetamine Screen Negative (NEGATIVE) Urine MDMA Screen Negative (NEGATIVE) U Benzodiazepines Scrn Negative (NEGATIVE) U Cocaine Metab Screen Negative (NEGATIVE) U Marijuana (THC) Screen Positive H (NEGATIVE) Med Orders - Current: Current Medications Acetaminophen (Tylenol) 650 mg PO Q4H PRN PRN Reason: Pain (Mild 1-3)/fever Last Admin: 03/23/17 08:31 Dose: 650 mg Enoxaparin Sodium (Lovenox) 40 mg SUBCUT Q24H [facility] Last Admin: 03/22/17 16:41 Dose: 40 mg HCTZ/Valsartan (Diovan Hct 80-12.5 Mg) 1 tab PO DAILY [facility] Last Admin: 03/23/17 08:31 Dose: 1 tab Hydromorphone HCl (Dilaudid) 2 mg IVPUSH Q2H PRN PRN Reason: ABD PAIN Last Admin: 03/22/17 19:43 Dose: 2 mg Potassium Chloride/Sodium Chloride (Normal Saline With 20 Meq Kcl) 1,000 mls @ 400 mls/hr IV ASDIRECTED [facility] Last Admin: 03/22/17 15:33 Dose: 400 mls/hr Sodium Chloride (Normal Saline) 1,000 mls @ 125 mls/hr IV ASDIRECTED [facility] Last Admin: 03/23/17 00:45 Dose: 125 mls/hr Ondansetron HCl (Zofran Odt) 4 mg PO Q6H PRN PRN Reason: nausea, able to take PO Last Admin: 03/22/17 15:32 Dose: 4 mg Ondansetron HCl (Zofran) 4 mg IV Q4H PRN PRN Reason: Nausea/Vomiting Last Admin: 03/22/17 20:44 Dose: 4 mg Sodium Chloride (Saline Flush) 10 ml FLUSH ASDIRECTED PRN PRN Reason: IV Use Last Admin: 03/22/17 18:38 Dose: 10 ml Discontinued Medications Diphenhydramine HCl (Benadryl) 50 mg PO ONETIME ONE Stop: 03/23/17 00:52 Last Admin: 03/23/17 01:18 Dose: 50 mg Duloxetine HCl (Cymbalta) 60 mg PO DAILY [facility] Estrogens Conjugated (Premarin) 1.25 mg PO DAILY [facility] Gabapentin (Neurontin) 300 mg PO TID [facility] Sodium Chloride (Normal Saline) 1,000 mls @ 125 mls/hr IV ASDIRECTED [facility] Levofloxacin/Dextrose 500 mg/ (Premix) 100 mls @ 100 mls/hr IV ONETIME ONE Stop: 03/22/17 22:31 Last Admin: 03/22/17 22:03 Dose: 100 mls/hr Ibuprofen (Motrin) 600 mg PO Q6H PRN PRN Reason: Pain (mild 1-3) Iopamidol (Isovue-370 (76%)) 75 ml IV ONETIME ONE Stop: 03/22/17 12:37 Last Admin: 03/22/17 12:47 Dose: 75 ml Non-Formulary Medication (Teriflunomide [Aubagio]) 14 mg PO DAILY [facility] Potassium Chloride (Potassium Chloride Solution) 40 meq PO ONETIME ONE Stop: 03/22/17 12:40 Last Admin: 03/22/17 18:45 Dose: 40 meq Potassium Chloride (Potassium Chloride Solution) Confirm Administered Dose 40 meq .ROUTE .STK-MED ONE Stop: 03/22/17 18:45 Last Admin: 03/22/17 18:47 Dose: Not Given Trazodone HCl (Trazodone) 100 mg PO BEDTIME [facility] Zolpidem Tartrate (Ambien) 5 mg PO BEDTIME PRN PRN Reason: Sleep - Exam General: Alert, Oriented HEENT: Pupils Equal, Pupils Reactive, EOMI, Mucous Membr. Moist/[place] Neck: Supple Lungs: Clear to Auscultation, Normal Respiratory Effort Cardiovascular: Regular Rate, Regular Rhythm GI/Abdominal Exam: Normal Bowel Sounds, Soft, Non-Tender, No Organomegaly, No Distention, No Abnormal Bruit, No Mass, Pelvis Stable - Problem List & Annotations (1) Gastroenteritis SNOMED Code(s): 08957192 Code(s): K52.9 - NONINFECTIVE GASTROENTERITIS AND COLITIS, UNSPECIFIED Status: Acute Current Visit: No Annotation/Comment:: Diarrhea can be managed with Imodium tabs prn. The nausea can be managed with a prescription of Zofran ODT 4 mg q 6 hr prn, and follow up with PCP. (2) Hypokalemia SNOMED Code(s): 93187469 Code(s): E87.6 - HYPOKALEMIA Status: Acute Current Visit: No Annotation /Comment:: Her K 2.7 meq/l. I dispensed KCl 20 meq tabs tid x 4 days, and then follow up with PCP for levels. In the meantime, she is not medically cleared. (3) Chronic pain SNOMED Code(s): 78112303 Code(s): G89.29 - OTHER CHRONIC PAIN Status: Chronic Current Visit: No Qualifiers: Chronic pain type: chronic pain syndrome (4) Multiple sclerosis SNOMED Code(s): 67430451 Code(s): G35 - MULTIPLE SCLEROSIS Status: Chronic Current Visit: No Annotation/Comment:: Follow up with Neurology. (5) UTI (urinary tract infection) SNOMED Code(s): 30303682 Code(s): N39.0 - URINARY TRACT INFECTION, SITE NOT SPECIFIED Status: Acute Current Visit: Yes Qualifiers: Urinary tract infection type: acute cystitis - Problem List Review Problem List Initiated/Reviewed/Updated: Yes - Plan Plan:: I will discharge the patient home today on oral antibiotics. Levaquin 500 milligrams once a day. She'll get 1 more dose of Dilaudid IV before going home.
[2017-03-23] MEDS ORDERED: TERIFLUNOMIDE 14 MG PO SCH (09:00)
[2017-03-23] MEDS ORDERED: HYDROCHLOROTHIAZIDE PO SCH (09:00)
[2017-03-23] MEDS ORDERED: DULoxetine 60 MG Cap PO SCH (09:00)
[2017-03-23] MEDS ORDERED: VALSARTAN PO SCH (09:00)
--- NOTE | 2017-03-23 09:04 | ER ---
DATE SEEN: 03/22/2017 TIME: The patient was seen at 1130 hours. HISTORY OF PRESENT ILLNESS: This 47-year-old woman has had MS for the last 5 years. She was seen on 03/17/2017 with vomiting and a bad kidney infection, was started on antibiotic, Levaquin, on 03/20/2017 and presents today because she feels worse. She came by ambulance. 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 She had been vomiting for several days and now is retching only today. She vomited 8 to 10 times per day since 03/17/2017. She feels more sick today and weaker today, and has "bad kidneys" with a chronic kidney infection 2 days ago. REVIEW OF SYSTEMS: GENERAL: The patient is blind and can hear my voice, but cannot see me. She has mild horizontal nystagmus. CARDIORESPIRATORY: No shortness of breath with exertion. She cannot get up and walk, so just her exerting to a sitting position from lying down caused dyspnea. EXTREMITIES: She has paresis of lower extremities, paralysis of lower extremities, and she cannot stand on. She has marked difficulty in moving her right leg, but has more flexibility and strength to the left leg. She has more or less stationary and unbendable right leg because of MS and contractures that occurred with it. She has chronic low leg discomfort. ABDOMEN: She has abdominal discomfort presently. It is a 7 to 8/10 in intensity. This has been present intermittently since the . She notes she has incontinence of urine intermittently because of her multiple sclerosis. : She is 3, para 3- 0-0-3. She has 3 children with another and currently has 3 other children of another . NECK: No history of thyroid disease. She has been tested multiple times and is not abnormal. Review of systems; negative, except for noted above. She is blind. Her ambulation is limited to just getting up and transfers. ALLERGIES: Penicillin and sulfa. 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 CURRENT MEDICATIONS: 1. Acetaminophen. 2. Cyclosporine. 3. Restasis, one drop to both eyes at bedtime. 4. Trazodone 100 mg daily. 5. Tylenol Extra Strength. 6. Tramadol 50 b.i.d. 7. Pregabalin 100 mg b.i.d. 8. Estrogen conjugated. 9. Premarin 1.25 mg daily. 10.Metoprolol tartrate 25 mg daily. 11.Duloxetine 60 mg daily. 12.Valsartan/hydrochlorothiazide 80/12.5 each daily. PHYSICAL EXAMINATION: VITAL SIGNS: Blood pressure 173/93, heart rate 70 and regular, respirations 16, oxygen saturation 99%, and 36.8 degrees centigrade. 65.77 kg. BMI 29.1 kg/m2. CONSTITUTIONAL: An obese woman. HEENT: Has very glaring nystagmus to the left and right, lateral nystagmus with dysconjugate gaze. Hearing is slightly decreased. Pharynx without abnormality. Gag is in place. Tongue is midline. Uvula midline. NECK: No bruits in the neck. There is minimal cervical adenopathy. HEART: S1, S2. No murmur. ABDOMEN: Marked increased abdominal girth. Subumbilical scar noted. No CVA percussion tenderness. PELVIC: Not performed. No rebound. MUSCULOSKELETAL: Lower extremities, the right is stiff and almost immobile. Left can be moved, flexion is with some spontaneous flexion. Has very markedly compromised right hip. No motion in the right hip. Sensation is decreased, but present in the lower extremities. Deep tendon reflexes and knee jerks present. Ankle jerks hypoactive. Deep tendon reflexes of upper extremities 1+ and normoactive. 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 Upper extremity muscle strength is very good and absent in lower extremities. She cannot stand. LABORATORY FINDINGS: White count elevated at 16,700 with left shift, 85 PMNs, lymphocytes 12, monos 3. She has a remarkably low potassium of 2.7, sodium 139, chloride 103, bicarb 24, BUN 10, and creatinine 0.7. GFR is 81. Remainder of automated chemistry is normal. Troponin is less than 0.017. Drug urine screen is positive for marijuana. IMAGING: CAT scan was performed, which demonstrated gastric antrum thickening, colon thickening, proximal transverse colon. No evidence for pyelonephritis. A cyst noted in the kidneys. Thickened ascending colon. ASSESSMENT: 1. No evidence for bowel obstruction. 2. Colitis. 3. Morbid obesity. 4. Multiple sclerosis. 5. Minimal ability to take care of herself. She is very dependent. 6. No evidence for hypothyroidism. 7. Neutrophilic leukocytosis 16,700 with PMNs 70, 85, 88. Blood cultures obtained, but pending. 8. Further deterioration in status in the last several days, as seen 2 days ago. 9. Marked instability and inability to move her right leg because of multiple sclerosis and contracture. 10.Cannot stand and walk. 11.Hypokalemia. 12.No evidence for myocardial infarction. 13.Marijuana use. PLAN: 1. The patient was admitted, was given potassium supplements, IV potassium and oral potassium supplements. The patient's IV to maintain her magnesium, slightly low at 1.7. She needs magnesium. To maximize potassium absorption. The patient's EKG demonstrates sinus rhythm without ST elevation. IV hydration will be important as she is under hydrated. 2. Multiple sclerosis with significant hemiparesis of lower extremities. 3. Abdominal pain, etiology indeterminate, but probably secondary to the colitis in the colon. Vomiting secondary to colitis. Thickened ascending and descending colons, and thickened transverse colon. Gastric antrum is somewhat thickened also, status post gastric bypass. The patient's status was discussed with Dr. Alejandro at 1355 hours. The patient admitted for further observation, IV therapy, and potassium replacement. The patient also had gram-negative rods, urine cultures performed on the . Urine cultures final reading has not been completed. /[id number] PATIENCE/SHONA
--- NOTE | 2017-03-23 09:47 | DISCH ---
DISCHARGE DATE: 03/23/2017 REASON FOR ADMISSION: 1. Urinary tract infection. 2. Gastroenteritis. 3. Hypokalemia. 4. Generalized weakness. 5. Multiple sclerosis. 6. Chronic pain. DISCHARGE DIAGNOSES: 1. Urinary tract infection. 2. Gastroenteritis. 3. Hypokalemia. 4. Generalized weakness. 5. Multiple sclerosis. 6. Chronic pain. BRIEF HISTORY: This is a 47-year-old female, well known to have anxiety, chronic pain, MS, was admitted because of diarrhea and vomiting, unable to keep anything down. She was dehydrated and hypokalemic. She was also found to have a urinary tract infection, but she had been seen a couple days ago at the ER. She was admitted, given Levaquin, IV fluids, Dilaudid for pain control, and symptoms improved this morning to the point that she would like to go back home. I discharged her home on her regular medications, and Levaquin 500 mg a day for 5 days to complete 7 days for the urinary tract infection. FOLLOWUP: In the office with PCP in 1 week. I spent more than 35 minutes in discharge of the patient. /[id number] ABDOULAYE/SHONA
[2017-03-23] MEDS: HYDROmorphone 2 MG/ML SDV IVPUSH PRN (10:21)
== END 2017-03-23 10:37 | disposition home or self-care (01) | DRG 392 ==
LOC: FB.ED 11:04 → FB.MS 14:03 → UNDOADMIN 14:46 → UNDODISIN 03-23 10:37
PROVIDERS: ADMIT Family Medicine; ATTEND Family Medicine
DX: K52.9 Noninfective gastroenteritis and colitis, unspecified (principal); N39.0 Urinary tract infection, site not specified; I10 Essential (primary) hypertension; G35 Multiple sclerosis; H54.7 Unspecified visual loss; R79.1 Abnormal coagulation profile; E87.6 Hypokalemia; H35.52 Pigmentary retinal dystrophy; F12.90 Cannabis use, unspecified, uncomplicated; Z87.891 Personal history of nicotine dependence; G89.29 Other chronic pain; E86.0 Dehydration; R10.30 Lower abdominal pain, unspecified; R11.2 Nausea with vomiting, unspecified; R19.7 Diarrhea, unspecified; F32.9 Major depressive disorder, single episode, unspecified; Z88.1 Allergy status to other antibiotic agents; Z88.0 Allergy status to penicillin; Z88.2 Allergy status to sulfonamides; Z88.8 Allergy status to other drugs, medicaments and biological substances
CPT/HCPCS: 36415; 71010; 71275; 74177; 80053; 83036; 83605; 83735; 84443; 84484; 85025; 85379; 87040 ×2; 93005; 96360; 99284; Q9967; 80305; 85651; 93010; 99285; A9270-GY; J1170; J1650; J1956; J2405; J3480; J7040; J7050

== ENCOUNTER 2019-05-18 16:11 | Emergency (ER) | payer MEDICARE, MEDICAID ==
--- NOTE | 2019-05-18 16:48 | EDM.PDOC ---
ED HPI GENERAL MEDICAL PROBLEM - General Chief Complaint: Head Injury Stated Complaint: HEAD INJURY,HEADACHES Time Seen by Provider: 05/18/19 16:47 Source of Information: Reports: Patient History Limitations: Reports: No Limitations - History of Present Illness INITIAL COMMENTS - FREE TEXT/NARRATIVE: 49-year-old female who reports on of this last week 05/15/2019, she was walking and slipped and fell getting out of the shower because she has MS and she has unsure footing and she hit her head against the floor. She did not have any loss of consciousness. She has had some headache and an area of swelling along the right side of her head since then. Headache has been persisting and is a sharp pain with palpation and throbbing otherwise. His pain as an 8/10. There has been no nausea or vomiting. She has no neck pain or back pain. She is a resident of [facility] and was on the day past when this happened. She was sent over here by the intermediate staff for evaluation because of her ongoing/persisting headache. There are no other associated signs or symptoms. There are no other modifying factors. 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: Reports: Other (see below) (Nothing) left side back head Pain Score (Numeric/FACES): 3 - Related Data Allergies Allergy/AdvReac Type Severity Reaction Status Date / Time Penicillins Allergy Unknown Bronchospas Verified 05/18/19 19:41 ms Sulfa (Sulfonamide Allergy Unknown Bronchospas Verified 05/18/19 19:41 Antibiotics) ms ciprofloxacin [From Cipro] Allergy Cannot Verified 05/18/19 19:41 Remember oxycodone Allergy Cannot Verified 05/18/19 19:41 Remember Home Meds: Home Meds Estrogens, Conjugated [Premarin] 1.25 mg PO DAILY 04/30/13 [History] DULoxetine [Cymbalta] 60 mg PO DAILY 03/22/17 [History] Metoprolol Tartrate 25 mg PO DAILY 03/22/17 [History] cycloSPORINE [Restasis] 1 drop EYEBOTH BEDTIME 03/22/17 [History] Acetaminophen 650 mg PO Q4H PRN 02/03/18 [History] Pregabalin [Lyrica] 100 mg PO BID 02/03/18 [History] atorvaSTATin [Lipitor] 40 mg PO BEDTIME 05/18/19 [History] lisinopriL [Lisinopril] 30 mg PO DAILY 05/18/19 [History] Past Medical History HEENT History: Reports: Impaired Vision Cardiovascular History: Reports: High Cholesterol, Hypertension Gastrointestinal History: Reports: GERD Genitourinary History: Reports: Urinary Incontinence, UTI, 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 Neurological History: Reports: MS Psychiatric History: Reports: Anxiety, Depression, Mood Swings - Infectious Disease History Infectious Disease History: Reports: Chicken Pox, Mononucleosis - Past Surgical History HEENT Surgical History: Reports: Cataract Surgery GI Surgical History: Reports: Colonoscopy, EGD Female Surgical History: Reports: Breast Reduction, Section, Hysterectomy, Other (See Below) (Surgery for ectopic ) Social & Family History - Tobacco Use Smoking Status *Q: Unknown Ever Smoked (Nonsmoker) - Caffeine Use Caffeine Use: Reports: Soda Other Caffeine Use: 1-2 DAILY OCC COFFEE Caffeine Use Comment: 2 TO 4 CUPS COFFEE AND 3 CAN DIET COKE - Alcohol Use Alcohol Use History: No - Living Situation & Occupation Living situation: Reports: , Extended Care Facility (She is a resident of [facility]) Occupation: Disabled ED ROS GENERAL - Review of Systems Review Of Systems: See Below Constitutional: Reports: No Symptoms HEENT: Reports: No Symptoms Respiratory: Reports: No Symptoms Cardiovascular: Reports: No Symptoms GI/Abdominal: Reports: No Symptoms : Reports: No Symptoms Musculoskeletal: Denies: Neck Pain, Arm Pain, Back Pain, Leg Pain Skin: Reports: No Symptoms Neurological: Reports: Headache. Denies: Dizziness Hematologic/Lymphatic: Reports: No Symptoms (No chronic anticoagulation.) Immunologic: Reports: No Symptoms ED EXAM, HEAD INJURY - Physical Exam Exam: See Below Exam Limited By: No Limitations General Appearance: Alert, WD/WN, No Apparent Distress Head: Normocephalic, Scalp Tenderness (With mild swelling over the right rivalry.) Nexus Criteria: No: Posterior, Midline Cervical Tenderness, Evidence of Intoxication, Altered Level of Consciousness, Focal Neurological Deficit, Painful Distraction Injuries Eyes: Bilateral Eye: EOMI, Other (Chronic changes in her eyes bilaterally) Ears: Normal External Exam, Hearing Grossly Normal Nose: Normal Inspection, Normal Mucousa, No Blood Throat/Mouth: Normal Inspection, Normal Oropharynx, Normal Voice, No Airway Compromise Neck: Non-Tender, Full Range of Motion Respiratory: No Respiratory Distress, Lungs Clear, Normal Breath Sounds, No Accessory Muscle Use, Chest Non-Tender Cardiovascular: Normal Peripheral Pulses, Regular Rate, Rhythm, No Murmur GI/Abdominal Exam: Normal Bowel Sounds, Soft, Non-Tender, No Mass Back Exam: Normal Inspection, Full Range of Motion Extremities: Normal Inspection, Normal Range of Motion, Non-Tender, No Pedal Edema, Normal Capillary Refill Neurologic: Alert, Normal Mood/Affect, Oriented x 3, Other (Patchy areas weakness consistent with her MS) Skin: Normal Color, Warm/Dry - [place] Coma Score Best Eye Response (Jennyfer): (4) Open Spontaneously Best Verbal Response ([place]): (5) Oriented Best Motor Response (Jennyfer): (6) Obeys Commands Jennyfer Total: 15 Course - Vital Signs Last Recorded V/S: Last Vital Signs Temp 36.6 C 05/18/19 16:15 Pulse 58 L 05/18/19 18:30 Resp 18 05/18/19 18:30 BP 123/61 05/18/19 18:30 Pulse Ox 100 05/18/19 18:30 - Radiology Interpretation Free Text/Narrative:: CT scan of head without contrast was read as unremarkable noncontrast head CT by the radiologist. - Re-Assessments/Exams Free Text/Narrative Re-Assessment/Exam: 05/18/19 18:45: The patient is awake and alert. She is neurologically and hemodynamically stable. He had of her head showed no acute problems. She will be discharged back to the intermediate and should take Tylenol as needed for her pain. She does not appear to have any significant or serious problem at this time. Departure - Departure Time of Disposition: 19:10 Disposition: Home, Self-Care 01 Condition: Good Clinical Impression: Concussion injury of brain Head contusion Qualifiers: Encounter type: initial encounter Contusion of head detail: unspecified part of head Qualified Code(s): S00.93XA - Contusion of unspecified part of head, initial encounter - Discharge Information Instructions: Facial or Scalp Contusion, [id number], Head Injury, Adult, Easy -to-Read Referrals: Justice Alejandro MD [Primary Care Provider] - Forms: ED Department Discharge Additional Instructions: The CT scan of your head is normal. There does not appear to be any significant injury at this point. You appear to have a bruise to your right scalp and head. Apply ice packs intermittently to the bruised area for the next few days. You may also take Tylenol 1000 mg by mouth every 6 hours as needed for pain. Follow- up with your primary doctor as needed. Sepsis Event Note - Focused Exam Date Exam was Performed: 05/19/19 Time Exam was Performed: 20:54
[2019-05-18 19:41] VITALS: PULSE 58
[2019-05-18 19:47] VITALS: BP 123/61
== END 2019-05-18 19:20 | disposition home or self-care (01) ==
LOC: FB.ED 16:11
DX: S06.0X9A Concussion with loss of consciousness of unspecified duration, initial encounter (principal); S00.93XA Contusion of unspecified part of head, initial encounter; I10 Essential (primary) hypertension; E78.00 Pure hypercholesterolemia, unspecified; F41.9 Anxiety disorder, unspecified; F32.9 Major depressive disorder, single episode, unspecified; Z88.0 Allergy status to penicillin; Z88.2 Allergy status to sulfonamides; Z88.1 Allergy status to other antibiotic agents; Z79.899 Other long term (current) drug therapy; W18.2XXA Fall in (into) shower or empty bathtub, initial encounter; Y92.89 Other specified places as the place of occurrence of the external cause
CPT/HCPCS: 70450; 99283-25